=== PATIENT | male | born 1995 | race Caucasian/White ===

== ENCOUNTER 2019-09-14 12:13 | Emergency (ER) | payer BC ==
[2019-09-14 12:19] VITALS: BP 131/86; PULSE 94; RESP 18; TEMP 98.7
[2019-09-14] MEDS ORDERED: LIDOCAINE 1% INJ 10MG/ML (20 ML MDV) SQ ONE (12:28)
--- NOTE | 2019-09-14 13:05 | XR ---
EXAMINATION TYPE: XR foot complete LT , 3 VIEWS DATE OF EXAM ORDERED: 09/14/2019 HISTORY: axe injury. COMPARISON: None. FINDINGS: No fracture, dislocation or other acute osseous lesion is seen. There are mild degenerativ e changes in the left first MTP joint. IMPRESSION: NO ACUTE OSSEOUS LESION.
--- NOTE | 2019-09-14 13:24 | ED ---
Wound/Laceration HPI - General Chief Complaint: Wound/Laceration Stated Complaint: axe injury lt foot Time Seen by Provider: 09/14/19 12:22 Source: patient Mode of arrival: wheelchair Limitations: no limitations - History of Present Illness Initial Comments: 24yo male presenting for axe to left anterior foot. Patient states he was using an axe to cut wood [place] his [place] when he missed striking top of shoe. He states it kind of slid across the top. He was able to remove shoe and noted a laceration that he thought might need repair and presented to ER. Denies uncontrolled bleeding. Patient denies limited range of motion of the toes. Denies numbness, tingling or loss of sensation. Patient denies additional injuries. Upon arrival patient appears well there is no signs of acute distress. Bleeding controlled after grossly examining wound with bandage removed. - Related Data Previous Rx's Medication Instructions Recorded Cephalexin [Keflex] 500 mg PO Q6HR 3 Days #12 cap 09/14/19 Allergies Allergy/AdvReac Type Severity Reaction Status Date / Time mesalamine [From Asacol] Allergy Unknown Verified 09/14/19 12:20 morphine Allergy Unknown Verified 09/14/19 12:20 Review of Systems ROS Statement: Those systems with pertinent positive or pertinent negative responses have been documented in the HPI. ROS Other: All systems not noted in ROS Statement are negative. Past Medical History Additional Past Medical History / Comment(s): chrones History of Any Multi-Drug Resistant Organisms: None Reported Past Surgical History: Appendectomy, Bowel Resection Past Psychological History: No Psychological Hx Reported Smoking Status: Never smoker Past Alcohol Use History: Occasional Past Drug Use History: None Reported General Exam - General Exam Comments Initial Comments: General: The patient is awake and alert, in no distress Eye: Pupils are equal, round and reactive to light, extra-ocular movements are intact. No nystagmus. There is normal conjunctiva bilaterally. No signs of icterus. Ears, nose, mouth and throat: There are moist mucous membranes and no oral lesions. Musculoskeletal: Inspection of the foot revealed a water appears superficial linear laceration of the distal foot just proximal to the MPT joint. There no exposure of tendon, no evidence of tendon injury. No evidence of foreign body even with exploration. Normal ROM, no tenderness of all 5 digits of the left foot equal in comparison to the right. Strength 5/5. Sensation intact. DP ulses equal bilaterally 2+. Neurological: A&O x 3. CN II-XII intact grossly, There are no obvious motor or sensory deficits. Coordination appears grossly intact. Speech is normal. Skin: Skin is warm and dry and no rashes or lesions are noted. Psychiatric: Cooperative, appropriate mood & affect, normal judgment. Limitations: no limitations Course Vital Signs 09/14/19 12:15 Temperature 98.7 F Pulse Rate 94 Respiratory 18 Rate Blood Pressure 131/86 O2 Sat by Pulse 97 Oximetry Procedures - Laceration Laceration #1 Consent Obtained: verbal consent Indication: laceration Site: foot (right) Size (cm): 5 Description: linear Depth: simple, single layer Anesthetic Used: lidocaine 1% Anesthesia Technique: local infiltration Amount (mls): 2 Pre-repair: wound explored, irrigated extensively, deep structures intact Type of Sutures: nylon Size of Sutures: 5-0 Number of Sutures: 6 Technique: simple, interrupted Patient Tolerated Procedure: well, no complications (irrigated/cleansed with iodine prior to closure) Medical Decision Making - Medical Decision Making 24yo male presenting today for cc of left foot laceration through shoe top from laceration. Patietn has no evidence of obvious tendon injury on exam, full ROM of toes, no decreased strength or exposure of tendon. Patient laceration cleansed and repaired. Tdap last year. Patient does use immune modulators for crohns disease and I will place him on prophylactic abx. No fracture on XR for FB. Patient is aware of risk associated wtih occult tendon injury although no suspected at this time. Recommended orthopedic evaluation and f/u. Patient is agreeable to this care plan and discharge. Patient is aware of importance of avoidance of subemrging foot in water/suture care. Case discussed with Dr Helton who is agreeablet o care plan. Disposition Clinical Impression: Laceration of left foot Disposition: HOME SELF-CARE Condition: Good Instructions (If sedation given, give patient instructions): Care For Your Stitches (ED), Laceration (ED) Additional Instructions: Please use medication as discussed. Please follow-up with family doctor in the next 2 days. Please return to emergency room if the symptoms increase or worsen or for any other concerns. Prescriptions: Cephalexin [Keflex] 500 mg PO Q6HR 3 Days #12 cap Is patient prescribed a controlled substance at d/c from ED?: No Referrals: Nonstaff,Physician [Primary Care Provider] - 1-2 days Justin Fu DO [Medical Doctor] - 1-2 days Time of Disposition: 13:24
== END 2019-09-14 13:53 | disposition home or self-care (01) ==
LOC: EC 12:13
DX: S91.312A Laceration without foreign body, left foot, initial encounter (principal); Z88.5 Allergy status to narcotic agent; Z88.8 Allergy status to other drugs, medicaments and biological substances; W26.8XXA Contact with other sharp object(s), not elsewhere classified, initial encounter; Y93.89 Activity, other specified; Y92.89 Other specified places as the place of occurrence of the external cause
CPT/HCPCS: 73630; 99283; 12002; J2001